=== PATIENT | male | born 1980 | race Caucasian/White ===

== ENCOUNTER 2019-04-30 15:03 | Emergency (ER) | payer MEDICAID ==
[~2019-04-30] VITALS: Ht 175.3 cm; Wt 71.7 kg
[2019-04-30 15:22] VITALS: BP 124/81
== END 2019-04-30 16:26 | disposition home or self-care (01) ==
LOC: ED 16:20
DX: G89.11 Acute pain due to trauma (principal); M25.511 Pain in right shoulder; M13.111 Monoarthritis, not elsewhere classified, right shoulder; F17.200 Nicotine dependence, unspecified, uncomplicated; X50.1XXA Overexertion from prolonged static or awkward postures, initial encounter; Y93.89 Activity, other specified; Y92.69 Other specified industrial and construction area as the place of occurrence of the external cause; Y99.8 Other external cause status
CPT/HCPCS: 99283